=== PATIENT | female | born 1940 | race Caucasian/White ===

== ENCOUNTER 2024-04-07 11:40 | Inpatient (IN) | payer MEDICARE ==
[2024-04-07] MEDS: fentaNYL (PF) 50 MCG/ML 2 ML AMP IVP ONE (14:31)
[2024-04-07] MEDS: IV FLUID CONTINUATION 1,000 ML IV ONE (14:31)
[2024-04-07] MEDS: MIDAZOLAM 2 MG/2 ML VIAL IVP ONE (14:31)
[2024-04-07] MEDS: LIDOCAINE 1% INJ 10MG/ML (20 ML MDV) SQ ONE (14:33)
[2024-04-07] MEDS: VERAPAMIL SYRINGE (5 MG/10 ML) INTRAARTER ONE (14:35)
[2024-04-07] MEDS: HEPARIN SODIUM 1,000 UN/ML (10ML VL) IV ONE (14:41)
[2024-04-07] MEDS: IOPAMIDOL-370 100ML BTL INJ ONE ×2 (15:16→15:23)
[2024-04-07] MEDS ORDERED: ALPRAZolam 0.25 MG TAB PO PRN (15:57)
[2024-04-07] MEDS ORDERED: ALPRAZolam 0.5 MG TAB PO PRN (15:57)
[2024-04-07] MEDS ORDERED: RX INFO: IV CONTRAST WAS GIVEN 1 EACH MISC MISCELLANE PRN (15:58)
[2024-04-07] MEDS: SODIUM CHLORIDE 0.9% 1,000 ML IV SCH (16:45)
[2024-04-07] MEDS: ASPIRIN 325 MG TAB PO STA (17:05)
[2024-04-07] MEDS: SODIUM CHLORIDE 0.9% 1,000 ML in EMPTY BAG 1 BAG IV SCH (17:06)
--- NOTE | 2024-04-07 23:42 | CC ---
CARDIAC CATHETERIZATION REPORT INDICATION: Non ST-segment elevation TX. PROCEDURE NOTE: After obtaining informed consent, left heart catheterization and coronary angiogram were performed via the right radial artery using standard Steven catheters. The patient tolerated the procedure well without any obvious immediate complications. The patient received moderate conscious sedation. Total sedation time was 22 minutes. Right radial artery access was obtained using Seldinger technique, 6-Turkmen sheath was placed. Catheters and wires were floated into the ascending aorta under fluoroscopic guidance. The patient received verapamil and heparin per protocol. FINDINGS: 1. Hemodynamics: Left ventricular end-diastolic pressure is 22 mm. There is no significant gradient across the aortic valve. 2. Left ventriculogram: Left ventriculogram shows severe LV systolic dysfunction with hypokinesis of the apex suggestive of a Takotsubo syndrome. 3. Angiographic Data: a.Right coronary artery: Right coronary artery is a large dominant vessel and is free of significant stenosis. b.Left main coronary artery is a short vessel, divides into left anterior descending coronary artery and circumflex coronary artery. c.Circumflex coronary artery and its branches are free of significant stenosis. LAD shows mild atherosclerotic plaque proximally. I used a size 3.5 and 3 Steven catheters, but it was difficult to visualize the proximal LAD well. Subsequent images were obtained by Dr. Sanchez, the on-call acquisitions librarian. 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 We will treat the patient with optimal medical therapy. MMODL / IJN: [id number] /
[2024-04-08] MEDS: ASPIRIN 81 MG PO SCH (08:12)
[2024-04-08 08:18] VITALS: RESP 16
[2024-04-08] MEDS: METOPROLOL TARTRATE 12.5 MG TAB PO SCH (08:33)
[2024-04-08] MEDS: CLOPIDOGREL 75 MG TAB PO SCH (08:33)
[2024-04-08] MEDS: ISOSORBIDE MONONITRATE ER 30 MG TAB.ER.24H PO SCH (08:33)
--- NOTE | 2024-04-08 09:02 | P.PN ---
Subjective Progress Note Date: 04/08/24 This is an 83-year-old female patient transferred from [facility] with diagnosis of non-ST elevated CA for cardiac catheterization which was performed by Dr. Ravi Falcon on 04/07 finding mild nonobstructive coronary artery disease, non-ST segment elevated CA and extensive LV dysfunction and wall motion abnormality probably related to apical ballooning syndrome. Approach was from the right radius which has no signs of hematoma, bleeding. Patient has no complaints of chest pain today. Blood pressure 116/65, heart rate 63, pulse ox 95% on room air. No lab work has been obtained this morning. Physical examination: Gen: This is an 83-year-old female in no acute distress VS: reviewed HEENT: Head is atraumatic, normocephalic. Pupils equal, round. Sclerae is anicteric. NECK: Supple. No JVD. LUNGS: Clear to auscultation. No wheezes or rhonchi. No intercostal retractions. HEART: Regular rate and rhythm. Systolic murmur at the apex. ABDOMEN: Soft No tenderness. EXTREMITIES: No pedal edema. No calf tenderness. NEUROLOGICAL: Patient is awake, alert and oriented x3. Assessment: Non-ST elevated CA Apical ballooning syndrome Hypertension Plan: Start patient on the following: Aspirin 81 mg daily, atorvastatin 40 mg at bedtime, Plavix 75 mg daily, Imdur 30 mg daily, losartan 25 mg daily, Lopressor 12.5 mg twice daily Obtain 2-D echocardiogram and Doppler study to assess cardiac structure and function Obtain CBC and BMP further recommendations to follow based upon clinical course Further recommendations as patient progresses. Nurse practitioner note has been reviewed, I agree with documented findings and plan of care. Patient was seen and examined. Objective - Vital Signs Vital signs: Vital Signs Temp 97.5 F L 04/08/24 07:00 Pulse 63 04/08/24 07:00 Resp 16 04/08/24 07:00 BP 116/65 04/08/24 07:00 Pulse Ox 95 04/08/24 07:00 FiO2 Intake & Output 04/07/24 04/08/24 04/08/24 18:59 06:59 18:59 Intake Total 618 Balance 618 Weight 48.1 kg Intake: IV 500 Oral 118 Other: Voiding Method Toilet # Voids 2
[2024-04-08] MEDS: LOSARTAN 25 MG TAB PO SCH (10:04)
[2024-04-08 10:25] LABS: African American GFR (CKD) 87 (>60 ml/min/1.73 sqM); Blood Urea Nitrogen 11 mg/dL (7-17); Non-African American GFR(CKD) 76 (>60 ml/min/1.73 sqM)
[2024-04-08 10:37] LABS: Carbon Dioxide 24.2 mmol/L (21.6-31.8); Chloride 103 mmol/L (96-109); LDL Cholesterol,Calculated 116.1 mg/dL (0.0-131.0); Potassium 4.3 mmol/L (3.5-5.5); Sodium 137 mmol/L (135-145); VLDL Calculation 19.42 mg/dL (5.00-40.00)
[2024-04-08 10:47] LABS: Basophils # (A) 0.04 X 10*3/uL (0.00-0.10); Basophils % (A) 0.7 %; Eosinophils # (A) 0.04 X 10*3/uL (0.04-0.35); Eosinophils % (A) 0.7 %; HCT 36.2 % (37.2-46.3); Lymphocytes # (A) 0.86 X 10*3/uL (0.90-5.00); Lymphocytes % (A) 14.4 %; MCH 29.9 pg (27.0-32.0); MCHC 33.1 g/dL (32.0-37.0); MCV 90.3 FL (80.0-97.0); Monocytes # (A) 0.38 X 10*3/uL (0.20-1.00); Monocytes % (A) 6.4 %; NRBC Per 100 WBC 0 X 10*3/uL (0.00-0.01); Neutrophils # (A) 4.64 X 10*3/uL (1.80-7.70); Neutrophils % (A) 77.5 %; Platelet Count 194 X 10*3/uL (140-440); RBC 4.01 X 10*6/uL (4.10-5.20); RDW 13.3 % (11.5-14.5); WBC 5.98 X 10*3/uL (4.50-10.00)
--- NOTE | 2024-04-08 11:34 | CA ---
Transthoracic Echo Report Name: Ayleen Salazar Age: 83 Gender: F : 1940 Exam Date: 04/08/2024 09:12 Exam Location: [facility] Ht (in): 61 Wt (lb): 106 Ordering Physician: Sivan Bass Attending/Referring Phys: [id number], Kali Director Social Welfare Carmelita Quinonez RDCS Procedure CPT: Indications: LVF Cardiac Hx: Technical Quality: Fair Contrast 1: Total Dose (mL): Contrast 2: Total Dose (mL): MEASUREMENTS (Male / Female) Normal Values 2D ECHO LV Diastolic Diameter PLAX 4.5 cm 4.2 - 5.9 / 3.9 - 5.3 cm LV Systolic Diameter PLAX 2.7 cm IVS Diastolic Thickness 1.2 cm 0.6 - 1.0 / 0.6 - 0.9 cm LVPW Diastolic Thickness 1.3 cm 0.6 - 1.0 / 0.6 - 0.9 cm LV Relative Wall Thickness 0.5 RV Internal Dim ED PLAX 1.6 cm LV Diastolic Volume MOD BP 92.0 cm??? 67 - 155 / 56 - 104 cm??? LV Systolic Volume MOD BP 59.2 cm??? 22 - 58 / 19 - 49 cm??? LV Ejection Fraction MOD BP 35.7 % >= 55 % LV Cardiac Index MOD BP 1233.4 cm???/min???m??? LV Diastolic Volume MOD 4C 102.1 cm??? LV Systolic Volume MOD 4C 58.4 cm??? LV Ejection Fraction MOD 4C 42.9 % LV Cardiac Index MOD 4C 1643.4 cm???/min???m??? LV Diastolic Length 4C 8.1 cm LV Systolic Length 4C 7.8 cm LV Diastolic Volume MOD 2C 76.8 cm??? LV Systolic Volume MOD 2C 57.4 cm??? LV Ejection Fraction MOD 2C 25.3 % LV Cardiac Index MOD 2C 730.9 cm???/min???m??? LV Diastolic Length 2C 7.5 cm LV Systolic Length 2C 7.4 cm LA Volume 64.3 cm??? 18 - 58 / 22 - 52 cm??? LA Volume Index 44.7 cm???/m??? 16 - 28 cm???/m??? M-MODE Aortic Root Diameter MM 2.8 cm LA Systolic Diameter MM 2.8 cm LA Ao Ratio MM 1.0 AV Cusp Separation MM 2.3 cm DOPPLER AV Peak Velocity 121.2 cm/s AV Peak Gradient 5.9 mmHg AV Mean Velocity 85.4 cm/s AV Mean Gradient 3.2 mmHg AV Velocity Time Integral 24.7 cm AI Peak Velocity 395.4 cm/s AI Peak Gradient 62.5 mmHg AI Pressure Half Time 584.2 ms LVOT Peak Velocity 110.3 cm/s LVOT Peak Gradient 4.9 mmHg LVOT Velocity Time Integral 18.8 cm MV Area PHT 4.4 cm??? Mitral E Point Velocity 39.8 cm/s Mitral A Point Velocity 74.6 cm/s Mitral E to A Ratio 0.5 MV Deceleration Time 173.4 ms TR Peak Velocity 210.1 cm/s TR Peak Gradient 17.7 mmHg Right Ventricular Systolic Press 22.7 mmHg FINDINGS Left Ventricle Mildly increased left ventricular wall thickness. Mildly increased left ventricular systolic volume. Moderately decreased left ventricular ejection fraction. [place] akinetic. Mid inferior , lateral, anterior wall hypokinesis. Left ventricular ejection fraction is estimated at 15-20 %. Grade 2 diastolic dysfunction. Right Ventricle Normal right ventricular size and function. Right ventricular systolic pressure within normal limits. Right Atrium Normal right atrial size. Left Atrium Moderately increased left atrial volume. Mildly increased left atrial area. Mitral Valve Structurally normal mitral valve. Mitral valve thickened. Mild mitral annular calcification. Mild mitral regurgitation. Aortic Valve Trileaflet aortic valve. No aortic stenosis. Aortic valve sclerosis. Mild-to- moderate aortic regurgitation. Tricuspid Valve Structurally normal tricuspid valve. Trace tricuspid regurgitation. Pulmonic Valve Structurally normal pulmonic valve. Pericardium No pericardial effusion. Aorta Normal size aortic root and proximal ascending aorta. CONCLUSIONS Cardiomyopathy with severe LV systolic dysfunction ejection fraction of 15-20% Base of the ventricle is the only thing moving suggestive of apical ballooning syndrome Mild mitral regurgitation Mild to moderate aortic regurgitation Previewed by: Dr. Yung Falcon MD (Electronically Signed) Final Date: 08 April 2024 11:33
[2024-04-08] MEDS: HEPARIN SODIUM,PORCINE 5,000 UNIT/ML 1 ML VIAL SQ SCH (20:10)
[2024-04-08] MEDS: ATORVASTATIN 40 MG TAB PO SCH (20:10)
--- NOTE | 2024-04-08 22:52 | P.HPIM ---
History of Present Illness H&P Date: 04/08/24 Chief Complaint: Chest pain Patient is a 83-year-old female with a past medical history of hypertension, osteoarthritis, migraine headaches initially presented to [facility] [place] ER with the complaints of elevated blood pressure and started having left-sided chest pain below the shoulder blade radiating to the midsternal region. Patient was found to have elevated troponin level and was diagnosed with non-ST elevated OR. Patient was transferred to [facility] for cardiac catheterization. Patient underwent cardiac catheterization on 04/07/2024 showed mild nonobstructive coronary artery disease and extensive LV dysfunction and wall motion abnormality is probably related to apical ballooning syndrome. Medical therapy was recommended. Laboratory pressure WBC 5.9 hemoglobin 12.0 and platelets 494 sodium 139 potassium 4.3 chloride 103 bicarb is 24.2 BUN 11 and creatinine 0.73 and total cholesterol 220 and LDL 116 Review of Systems Constitutional: Patient denies any fever or chills . No generalized weakness or weight loss. Abdomen: Patient denied nausea vomiting and diarrhea and abdominal pain. Cardiovascular: Patient denies any chest pain or short of breath no palpitations. Respiratory: patient denied any cough or sputum production. No shortness of breath Neurologic: Patient denied any numbness or tingling. no headache. Musculoskeletal: Patient denies any complaints of joint swelling or deformity. Skin: Negative Psychiatric: Negative Endocrine: No heat or cold intolerance. No recent weight gain. Genitourinary: No dysuria or hematuria. All other 14 point ROS negative except the above Past Medical History Past Medical History: Hypertension, Osteoarthritis (OA), Pneumonia Additional Past Medical History / Comment(s): bradycardia-heat related, FREQ DIARRHEA, ARTHRITIS, 'silent migraines", enlarged thyroids History of Any Multi-Drug Resistant Organisms: None Reported Past Surgical History: Appendectomy, Tubal Ligation Additional Past Surgical History / Comment(s): ANISHA THUMB SURGERY,NEUROMAS REMOVED LEFT FT, RT BUNIONECTOMY , SINUS SURGERY Past Anesthesia/Blood Transfusion Reactions: Motion Sickness, Postoperative Nausea & Vomiting (PONV) Past Psychological History: No Psychological Hx Reported Smoking Status: Never smoker Past Alcohol Use History: Rare Past Drug Use History: None Reported Medications and Allergies Home Medications Medication Instructions Recorded Confirmed Type Irbesartan 300 mg PO DAILY 04/07/24 04/07/24 History amLODIPine [Norvasc] 5 mg PO DAILY 04/07/24 04/07/24 History Allergies Allergy/AdvReac Type Severity Reaction Status Date / Time Sulfa (Sulfonamide Allergy Unknown Rash/Hives Verified 04/07/24 16:43 Antibiotics) alendronate sodium Allergy Unknown Verified 04/07/24 17:34 [From Fosamax] NSAIDS (Non-Steroidal Allergy Unknown Verified 04/07/24 17:34 Anti-Inflamma pregabalin [From Lyrica] Allergy Unknown Verified 04/07/24 17:33 codeine AdvReac Unknown Syncope Verified 04/07/24 16:43 Physical Exam Vitals: Vital Signs Temp Pulse Pulse Resp BP BP Pulse Ox 04/08/24 07:00 97.5 F L 63 16 116/65 95 04/08/24 02:07 98.0 F 72 17 100/67 95 04/07/24 20:19 66 113/72 95 04/07/24 19:18 64 100/62 95 04/07/24 18:30 80 14 119/72 95 04/07/24 18:00 84 14 119/72 95 04/07/24 17:30 69 14 113/72 96 04/07/24 17:15 68 14 104/66 96 04/07/24 17:00 78 14 116/60 97 04/07/24 16:45 97.1 F L 78 14 119/70 97 04/07/24 16:03 70 16 102/58 96 04/07/24 15:51 70 16 109/59 96 04/07/24 15:36 79 16 118/64 96 04/07/24 14:05 98.4 F 80 16 133/71 96 Intake and Output 04/07/24 04/08/24 04/08/24 22:59 06:59 14:59 Intake Total 318 Balance 318 Intake: IV 200 Oral 118 Other: Voiding Method Toilet # Voids 1 2 Weight 48.1 kg PHYSICAL EXAMINATION: Patient is lying in the bed comfortably, no acute distress, awake alert and oriented.. HEENT: Normocephalic. Neck is supple. Pupils reactive. Nostrils clear. Oral cavity is moist. Neck reveals no JVD, carotid bruits, or thyromegaly. CHEST EXAMINATION: Trachea is central. Symmetrical expansion. Lung gallagher clear to auscultation and percussion. CARDIAC: Normal S1, S2 with no gallops. No murmurs ABDOMEN: Soft. Bowel sounds normal. No organomegaly. No abdominal bruits. Extremities: reveal no edema. No clubbing or cyanosis Neurologically awake, alert, oriented x3 with well-coordinated movements. No focal deficits noted Skin: No rash or skin lesions. Psychiatric: Coperative. Nonsuicidal Musculoskeletal: No joint swelling or deformity. Normal range of motion. Results CBC & Chem 7: 04/08/24 07:36 04/08/24 09:45 Labs: Abnormal Lab Results - Last 24 Hours (Table) 04/08/24 04/08/24 Range/Units 07:36 07:36 RBC 4.01 L (4.10-5.20) X 10*6/uL Hct 36.2 L (37.2-46.3) % Lymphocytes # 0.86 L (0.90-5.00) X 10*3/uL Cholesterol 220.00 H (0.00-200.00) mg/dL HDL Cholesterol 84.50 H (40.00-60.00) mg/dL Thrombosis Risk Factor Assmnt - DVT/VTE Prophylaxis DVT/VTE Prophylaxis: Pharmacologic Prophylaxis ordered - Choose All That Apply Each Risk Factor Represents 3 Points: Age 75 years or older Thrombosis Risk Factor Assessment Total Risk Factor Score: 3 Thrombosis Risk Factor Assessment Level: Moderate Risk Assessment and Plan Assessment: Acute non-ST elevated OR status post cardiac catheterization showed mild nonobstructive CAD with extensive LV dysfunction and wall motion abnormality suspected apical ballooning syndrome. Apical ballooning syndrome Hypertension controlled now Osteoarthritis History of migraine headaches DVT prophylax with heparin subcu Plan: Patient will be continued on telemonitoring. Continue with aspirin, statins and Plavix and Imdur. Patient is also on losartan losartan. 2D echocardiogram is done, report pending. Cardiology is on board. Patient currently denies any complaints of chest pain or shortness of breath. Continue to monitor overnight. Time with Patient: Greater than 30
[2024-04-09 08:00] VITALS: TEMP 97.8
[2024-04-09] MEDS: LOSARTAN 25 MG TAB PO SCH (10:46)
[2024-04-09 11:06] VITALS: BP 108/60; PULSE 56
[2024-04-09 11:45] LABS: BUN/Creat Ratio 21.33 Ratio (12.00-20.00); Blood Urea Nitrogen 19.2 mg/dL (9.0-27.0); Calcium 8.3 mg/dL (8.7-10.3); Carbon Dioxide 23.2 mmol/L (21.6-31.8); Chloride 102 mmol/L (96-109); Glucose 101 mg/dL (70-110); Potassium 4.3 mmol/L (3.5-5.5); Sodium 135 mmol/L (135-145)
--- NOTE | 2024-04-09 22:30 | P.PN ---
Subjective Progress Note Date: 04/09/24 HPI This is an 83-year-old female patient transferred from [facility] with diagnosis of non-ST elevated RI for cardiac catheterization which was performed by Dr. Ravi Falcon on 04/07 finding mild nonobstructive coronary artery disease, non-ST segment elevated RI and extensive LV dysfunction and wall motion abnormality probably related to apical ballooning syndrome. Approach was from the right radius which has no signs of hematoma, bleeding. Patient has no complaints of chest pain today. Blood pressure 116/65, heart rate 63, pulse ox 95% on room air. No lab work has been obtained this morning. Progress note 04/09/2024 Patient denies any active chest pain chest pressure shortness of breath. On examination she appears euvolemic with no concerns of congestion. No crackles in the lungs, no swelling in bilateral lower extremity. Denies any palpitation lightheadedness. Telemetry does not show any significant alarms or any sustained arrhythmias. Physical examination: Gen: This is an 83-year-old female in no acute distress VS: reviewed HEENT: Head is atraumatic, normocephalic. Pupils equal, round. Sclerae is anicteric. NECK: Supple. No JVD. LUNGS: Clear to auscultation. No wheezes or rhonchi. No intercostal retractions. HEART: Regular rate and rhythm. Systolic murmur at the apex. ABDOMEN: Soft No tenderness. EXTREMITIES: No pedal edema. No calf tenderness. NEUROLOGICAL: Patient is awake, alert and oriented x3. Assessment: Elevated troponin, due to stress cardiomyopathy, likely Takotsubo Hypertension Nonischemic cardiomyopathy EF 15 to 20%, euvolemic Echocardiogram showed an EF of 15 to 20% with apical ballooning, concerning of possible Takotsubo cardiomyopathy. Cardiac cath did not show any significant obstructive coronary artery disease. Plan: Continue aspirin, Plavix, Imdur 15mg, losartan 12.5 mg, Lopressor 12.5mg twice daily. Consider starting SGLT2 on outpatient basis with primary cardiology follow-up. I have discussed with the patient about LifeVest, at this time patient is not interested in getting a LifeVest and would like to readdress it on outpatient basis. Recommend outpatient follow-up with cardiology. Recommend repeat echocardiogram in 3 months. Objective - Vital Signs Vital signs: Vital Signs Temp 97.8 F 04/09/24 07:00 Pulse 56 L 04/09/24 10:00 Resp 16 04/09/24 07:00 BP 108/60 04/09/24 10:00 Pulse Ox 96 04/09/24 07:00 FiO2 Intake & Output 04/09/24 04/09/24 04/10/24 06:59 18:59 06:59 Intake Total 240 Balance 240 Intake: Oral 240 Other: Voiding Method Toilet # Voids 1 - Labs CBC & Chem 7: 04/08/24 07:36 04/09/24 06:45 Labs: Abnormal Lab Results - Last 24 Hours (Table) 04/09/24 Range/Units 06:45 BUN/Creatinine Ratio 21.33 H (12.00-20.00) Ratio Calcium 8.3 L (8.7-10.3) mg/dL TSH 7.410 H (0.350-5.500) UIU/ML
[2024-04-10] MEDS ORDERED: CLOPIDOGREL 75 MG TAB PO SCH (09:00)
[2024-04-10] MEDS ORDERED: ISOSORBIDE MONONITRATE ER 15 MG TAB PO SCH (09:00)
--- NOTE | 2024-04-13 10:13 | P.DS ---
Providers Date of admission: 04/07/24 15:47 Expected date of discharge: 04/09/24 Attending physician: Jose Urrutia Consults: 04/08/24 07:58 Consult Physician Routine Consulting Provider: Yung Falcon Consult Reason/Comments: stone Do you want consulting provider notified?: Already Contacted Primary care physician: Harry Galvez Hospital Course: Final diagnosis Acute non-ST elevated [place] status post cardiac catheterization showed mild nonobstructive CAD with extensive LV dysfunction and wall motion abnormality suspected apical ballooning syndrome. Apical ballooning syndrome Hypertension controlled now Osteoarthritis History of migraine headaches DVT prophylax with heparin subcu GI prophylaxis Full code Discharge disposition Patient is being discharged in a stable condition with guarded prognosis to home. Patient will follow-up with Dr. Galvez in the outpatient setting upon discharge. Patient is to continue with current medications and close outpatient follow-up with cardiology as scheduled. Total time taken is greater than 35 minutes. Hospital course This is a 83-year-old female who was recently admitted with acute NSTEMI status post cardiac catheterization with cardiology following showing a mild nonobstructive coronary artery disease with extensive LV dysfunction and wall motion abnormality suspected apical ballooning syndrome. Patient is asymptom atic and reports to feeling well and would like to go home. Patient has been cleared by cardiology with adjustments to medications recommending outpatient follow-up with cardiology in 1 to 2 weeks. Please refer to cardiology notes for further HPI. Currently no reports of chest pain, shortness of breath, or palpitations. Patient is afebrile. No reports of nausea or vomiting and patient is tolerating diet. Patient will be discharged home today. Guarded prognosis given significant comorbidities. Physical exam: Gen: This is a 83-year-old female who is awake, alert and oriented x 3, well-d eveloped, elderly appearing, thin built HEENT: Head is atraumatic, normocephalic. Pupils equal, round. Sclerae is anicteric. NECK: Supple. No JVD. No lymphadenopathy. No thyromegaly. LUNGS: Clear to auscultation. No wheezes or rhonchi. No intercostal retractions. HEART: S1, S2 are muffled ABDOMEN: Soft. Bowel sounds are present. No masses. No tenderness. EXTREMITIES: No pedal edema. No calf tenderness. NEUROLOGICAL: Patient is awake, alert and oriented x3. Cranial nerves 2 through 12 are grossly intact. Please refer to medication reconciliation sheet for a list of medications. The impression and plan of care has been dictated by Nancy Garcia, Nurse Practitioner as directed. Dr. Keturah MD I have performed a history and examination and MDM of this patient, discussed the same with the dictator, and agree with the dictator's assessment and plan as written ,documented as a scribe. Based on total visit time, I have performed more than 50% of the visit. Patient Condition at Discharge: Fair Plan - Discharge Summary New Discharge Prescriptions: New Isosorbide Mononitrate ER [Imdur] 15 mg PO DAILY #30 tab Clopidogrel [Plavix] 75 mg PO DAILY #30 tab Aspirin 81 mg PO DAILY #30 tab Losartan [Cozaar] 12.5 mg PO DAILY #30 tab Atorvastatin [Lipitor] 40 mg PO HS #30 tab Metoprolol Tartrate [Lopressor] 12.5 mg PO BID #60 tab Discontinued Irbesartan 300 mg PO DAILY amLODIPine [Norvasc] 5 mg PO DAILY Discharge Medication List Aspirin 81 mg PO DAILY #30 tab 04/09/24 [Rx] Atorvastatin [Lipitor] 40 mg PO HS #30 tab 04/09/24 [Rx] Clopidogrel [Plavix] 75 mg PO DAILY #30 tab 04/09/24 [Rx] Isosorbide Mononitrate ER [Imdur] 15 mg PO DAILY #30 tab 04/09/24 [Rx] Losartan [Cozaar] 12.5 mg PO DAILY #30 tab 04/09/24 [Rx] Metoprolol Tartrate [Lopressor] 12.5 mg PO BID #60 tab 04/09/24 [Rx] Follow up Appointment(s)/Referral(s): Harry Galvez [Primary Care Provider] - 1-2 Days Yung Falcno MD [STAFF PHYSICIAN] - 1 Week (office will call and set up appointment) Patient Instructions/Handouts: Heart Attack (DC) Activity/Diet/Wound Care/Special Instructions: Activity limited until follow-up Follow-up with primary care provider on discharge Follow-up with cardiology in 1 to 2 weeks Continue taking medications as prescribed Discharge Disposition: HOME SELF-CARE
== END 2024-04-09 12:31 | disposition home or self-care (01) | DRG 281 ==
LOC: 6NMEDSUR 15:47
PROVIDERS: ADMIT Hospitalist; ATTEND Hospitalist
PROC: B2111ZZ Fluoroscopy of Multiple Coronary Arteries using Low Osmolar Contrast (ICD-10-PCS; 2024-04-07)
PROC: B2141ZZ Fluoroscopy of Right Heart using Low Osmolar Contrast (ICD-10-PCS; 2024-04-07)
PROC: 4A023N7 Measurement of Cardiac Sampling and Pressure, Left Heart, Percutaneous Approach (ICD-10-PCS; principal; 2024-04-07 11:40)
DX: I21.4 Non-ST elevation (NSTEMI) myocardial infarction (principal); I42.8 Other cardiomyopathies; I51.81 Takotsubo syndrome; I25.10 Atherosclerotic heart disease of native coronary artery without angina pectoris; I10 Essential (primary) hypertension; M19.90 Unspecified osteoarthritis, unspecified site; Z79.899 Other long term (current) drug therapy
CPT/HCPCS: 80048; 80051; 80061; 82565; 84439; 84443; 84520; 85025; 93306; 93458

== ENCOUNTER → 2024-04-28 | Outpatient (CLI) | payer MEDICARE ==
[2024-04-28 21:39] LABS: Blood Urea Nitrogen 14.9 mg/dL (9.0-27.0); Calcium 9.4 mg/dL (8.7-10.3); Chloride 99 mmol/L (96-109); Glucose 115 mg/dL (70-110); Potassium 3.5 mmol/L (3.5-5.5); Sodium 141 mmol/L (135-145)
== END | disposition home or self-care (01) ==
LOC: LABWHC1 12:49
PROVIDERS: ATTEND Internal Medicine Cardiovascular Disease
DX: Z51.81 Encounter for therapeutic drug level monitoring (principal)
CPT/HCPCS: 36415; 80048